=== PATIENT | female | born 1930 | race Caucasian/White ===

== ENCOUNTER 2016-10-29 19:22 | Inpatient (IN) | payer OTHER ==
[~2016-10-29] VITALS: Ht 162.6 cm; Wt 69.0 kg
[2016-10-29 19:34] VITALS: Ht 162.6 cm; Wt 69.0 kg
[2016-10-29] MEDS ORDERED: SOD CHLORIDE 0.9% 500 ML IV STA (20:16)
[2016-10-29 20:40] LABS: ADD SCAN DIFF NO
[2016-10-29 20:44] LABS: BASOPHILS % 0.4 % (0.0-2.0); EOSINOPHILS # 0.2 10^3/ul (0.0-0.5); EOSINOPHILS % 3.9 % (0.0-7.0); HEMATOCRIT 41.9 % (37.0-47.0); HEMOGLOBIN 13.8 g/dl (12.0-16.0); LYMPHOCYTES # 2.1 10^3/ul (0.8-2.9); LYMPHOCYTES % 41.4 % (15.0-51.0); MEAN CORPUSCULAR HEMOGLOBIN 30.9 pg (29.0-33.0); MEAN CORPUSCULAR HGB CONC 32.9 g/dl (32.0-37.0); MEAN CORPUSCULAR VOLUME 93.9 fl (82.0-101.0); MEAN PLATELET VOLUME 10.4 fl (7.4-10.4); MONOCYTE # 0.6 10^3/ul (0.3-0.9); MONOCYTES % 10.7 % (0.0-11.0); NEUTROPHIL # 2.2 10^3/ul (1.6-7.5); NEUTROPHILS % 43.4 % (39.0-77.0); PLATELET COUNT 180 10^3/UL (140-415); RED BLOOD COUNT 4.46 10^6/ul (4.20-5.40); RED CELL DISTRIBUTION WIDTH 13.2 % (11.5-14.5); WHITE BLOOD COUNT 5.2 10^3/ul (4.8-10.8)
--- NOTE | 2016-10-29 20:56 | RADRPT ---
PROCEDURE: CT Brain without contrast. CLINICAL INDICATION: Possible Stroke TECHNIQUE: A CT of the brain was performed on a [employer] 64-slice CT scanner utilizing axial imaging from the skull base through the vertex without IV contrast. Multiplanar reformatted images were made. Images were reviewed on a PACS workstation. The CTDIvol is 43.9 mGy and the DLP is 630. 2 mGycm. COMPARISON: None FINDINGS: There is no intracranial hemorrhage, mass effect, or midline shift. No extra-axial fluid collection is seen. There is cerebral volume loss with prominence of the cerebral sulci and lateral ventricles . Periventricular white matter hypodensities are nonspecific but likely reflect chronic microvascula r ischemic change. Sahni-white matter differentiation is preserved. The visualized paranasal sinuses and osseous structures are grossly unremarkable. IMPRESSION: 1. No evidence of acute intracranial pathology. No definite CT evidence for acute intracranial isch emia. If clinical suspicion is high, consider MRI for further evaluation. 2. Diffuse cerebral volume loss. 3. Periventricular white matter hypodensities are nonspecific but likely reflect chronic microvascu lar ischemic change. Physician Mary Date Time Electronically viewed and signed by Physician Mary on 10/29/2016 20:56 ML/
[2016-10-29 20:58] LABS: INR 1.85; PROTIME 21.5 Sec (12.2-14.2); PT RATIO 1.7
[2016-10-29 20:59] LABS: PARTIAL THROMBOPLASTIN TIME 32.6 Sec (25.0-35.0)
[2016-10-29 21:00] LABS: ANION GAP 18 (8-16); BLOOD UREA NITROGEN 15 mg/dl (7-20); CALCIUM 9.1 mg/dl (8.4-10.2); CARBON DIOXIDE 30 mmol/L (21-31); CHLORIDE 100 mmol/L (97-110); CREATININE 1.07 mg/dl (0.44-1.00); GLUCOSE 93 mg/dl (70-220); POTASSIUM 3.9 mmol/L (3.5-5.1); SODIUM 144 mmol/L (135-144)
[2016-10-29 21:29] LABS: TROPONIN-I < 0.012 ng/ml (0.00-0.12)
[2016-10-29] MEDS ORDERED: WARF2.5T PO ×2 (21:29→21:31)
[2016-10-29] MEDS ORDERED: LEVO88TA3 PO (21:32)
[2016-10-29] MEDS ORDERED: DONE5TAB46 PO (21:32)
[2016-10-29] MEDS ORDERED: MULTI PO (21:33)
[2016-10-29] MEDS ORDERED: CARV3.1260 PO (21:33)
[2016-10-29] MEDS ORDERED: CHOL200073 PO (21:34)
[2016-10-29] MEDS ORDERED: ONDANSETRON 4 MG INJ IV PRN (22:30)
--- NOTE | 2016-10-29 22:33 | RADRPT ---
PROCEDURE: XR Chest. CLINICAL INDICATION: Chest pain. Possible stroke. TECHNIQUE: Single frontal view of the chest. COMPARISON: None. FINDINGS: Cardiomegaly. Atherosclerotic calcifications in the thoracic aorta. Mild pulmonary vascular conges tion with slight bibasilar atelectasis versus airspace disease. No signs of pleural fluid or pneumot horax are seen. The osseous structures and soft tissues are unremarkable. IMPRESSION: Mild failure. RPTAT: [facility] Physician Samy Date Time Electronically viewed and signed by Physician Samy on 10/29/2016 22:32 RS/
[2016-10-29] MEDS ORDERED: ASPIRIN 600 MG SUPP PR ONE (23:00)
--- NOTE | 2016-10-29 23:03 | ERA ---
ER Documentation Chief Complaint Date/Time DATE: 10/29/16 TIME: 22:58 Chief Complaint R shoulder pain and weakness with facial droop per son (negative now) HPI This 86-year-old female is brought in by family for strokelike symptoms. The patient had difficulty swallowing left facial droop and left arm weakness that lasted about 40 seconds. It then immediately resolved this is why they brought her in. While she was in triage the patient had slurred speech which then resolved. She is currently on Coumadin. She also had pain in her left armpit and shoulder that resolved. No fever or chills. No current pain ROS All systems reviewed and are negative except as per history of present illness. Medications Home Meds Reported Medications Cholecalciferol (Vitamin D3) (VITAMIN D-3) 2,000 Unit Capsule, 2000 UNIT PO DAILY, CAP 10/29/16 Multivitamins* (Theragran*) 1 Tab Tab, 1 TAB PO DAILY, TAB 10/29/16 Carvedilol* (Carvedilol*) 3.125 Mg Tablet, 3.125 MG PO BID, #60 TAB 10/29/16 Donepezil* (Aricept*) 5 Mg Tablet, 5 MG PO DAILY, TAB 10/29/16 Levothyroxine Sodium* (Levothyroxine Sodium*) 88 Mcg Tablet, 88 MCG PO BEFORE BREAKFAST, #30 TAB 10/29/16 Warfarin Sodium* (Coumadin*) 2.5 Mg Tablet, 1.25 MG PO DAILY, TAB SUN.,TUES.,THURS.,FRI. 10/29/16 Warfarin Sodium* (Coumadin*) 2.5 Mg Tablet, 2.5 MG PO DAILY, TAB MON.,WEDN.,SAT 10/29/16 Allergies Allergies: Coded Allergies: acetaminophen (Unverified Allergy, Unknown, 10/29/16) digoxin (Unverified Allergy, Unknown, 10/29/16) erythromycin base (Unverified Allergy, Unknown, 10/29/16) fluticasone (Unverified Allergy, Unknown, 10/29/16) oxycodone (Unverified Allergy, Unknown, 10/29/16) PMhx/Soc History of Surgery: Yes (lumbarlectomy, bilateral knee replacements) Anesthesia Reaction: No Hx Neurological Disorder: No Hx Respiratory Disorders: No Hx Cardiac Disorders: Yes (hx of htn) Hx Psychiatric Problems: No Hx Miscellaneous Medical Probl: No Hx Alcohol Use: No Hx Substance Use: No Hx Tobacco Use: No Smoking Status: Never smoker Physical Exam Vitals Vital Signs Date Time Temp Pulse Resp B/P Pulse Ox O2 Delivery O2 Flow Rate FiO2 10/29/16 22:47 98.7 99 22 163/92 95 Room Air 10/29/16 20:53 98.7 81 18 182/91 95 Room Air 10/29/16 19:34 99.4 102 20 182/84 100 Physical Exam Const: [] Mild distress, appears uncomfortable Head: Atraumatic Eyes: Normal Conjunctiva, EOMI, PRL ENT: Normal External Ears, Nose and Mouth. Neck: Full range of motion..~ No meningismus. Resp: Clear to auscultation bilaterally Cardio: Regular rate and rhythm, no murmurs Abd: Soft, non tender, non distended. Normal bowel sounds Skin: No petechiae or rashes Back: No midline or flank tenderness Ext: No cyanosis, or edema Neur: Awake and alert and oriented 3, cranial nerves II through XII intact, no cerebellar deficits finger to nose. NIH equals 0 Psych: Normal Mood and Affect Result Diagram: 10/29/16202910/29/16 2030 Results 24 hrs Laboratory Tests Test 10/29/16 20:30 White Blood Count 5.210^3/ul Red Blood Count 4.4610^6/ul Hemoglobin 13.8g/dl Hematocrit 41.9% Mean Corpuscular Volume 93.9fl Mean Corpuscular Hemoglobin 30.9pg Mean Corpuscular Hemoglobin Concent 32.9g/dl Red Cell Distribution Width 13.2% Platelet Count 27876^3/UL Mean Platelet Volume 10.4fl Neutrophils % 43.4% Lymphocytes % 41.4% Monocytes % 10.7% Eosinophils % 3.9% Basophils % 0.4% Nucleated Red Blood Cells % 0.0/100WBC Neutrophils # 2.210^3/ul Lymphocytes # 2.110^3/ul Monocytes # 0.610^3/ul Eosinophils # 0.210^3/ul Basophils # 0.010^3/ul Nucleated Red Blood Cells # 0.010^3/ul Prothrombin Time 21.5Sec Prothrombin Time Ratio 1.7 INR International Normalized Ratio 1.85 Activated Partial Thromboplast Time 32.6Sec Sodium Level 144mmol/L Potassium Level 3.9mmol/L Chloride Level 100mmol/L Carbon Dioxide Level 30mmol/L Anion Gap 18 Blood Urea Nitrogen 15mg/dl Creatinine 1.07mg/dl Glucose Level 93mg/dl Hemoglobin A1c 5.8% Calcium Level 9.1mg/dl Troponin I < 0.012ng/ml Current Medications Medications (Trade) Dose Ordered Sig/Karen Route PRN Reason Start Time Stop Time Status Last Admin Dose Admin Sodium Chloride (NS) 500 ml @ 500 mls/hr Q1H STAT IV 10/29/16 20:16 10/29/16 21:15 DC 10/29/16 21:05 Ondansetron HCl (Zofran Inj) 4 mg ER BRIDGE PRN IV NAUSEA AND/OR VOMITING 10/29/16 22:30 10/30/16 22:29 Aspirin (Aspirin) 600 mg ONCE ONCE MN 10/29/16 23:00 10/29/16 23:01 Procedures/MDM Intermittent resolving symptoms of strokelike illness probably likely TIA. Patient is on Coumadin and had resolving symptoms and thus is not a TPA candidate currently. CTA was negative for acute process however patient had a repeat swallow study which she failed. Still has no other deficits. Was given rectal aspirin. Patient will be admitted to telemetry for very close monitoring and further neurological assessments. Spoke with Dr. Bueno who will be admitting to telemetry. CT head interpretation: I see no acute process. I see no hemorrhage, no mass- effect or midline shift no skull fracture. EKG interpretation: Atrial fibrillation, rate of 100, left axis deviation, no ST -T wave changes concerning for acute ischemia. shelter monitor interpretation: A. fib without other arrhythmia Departure Diagnosis: Primary Impression: TIA (transient ischemic attack) Additional Impression: A-fib Condition: Serious MARIE WILSON DO Oct 29, 2016 23:03
[2016-10-30] VITALS (7 sets, daily range): BP systolic 144–170; BP diastolic 70–94; PULSE 74–87; RESP 20–22; TEMP 98.6
[2016-10-30] MEDS ORDERED: NACL 0.9% 3 ML SYG IV SCH (05:30)
[2016-10-30] MEDS ORDERED: MAGNESIUM HYDROXIDE 30ML CUP PO PRN (05:30)
[2016-10-30] MEDS ORDERED: ONDANSETRON 4 MG INJ IV PRN (05:30)
[2016-10-30] MEDS ORDERED: ATORVASTATIN 20 MG TAB PO ONE (06:30)
[2016-10-30 07:03] LABS: ADD SCAN DIFF NO
[2016-10-30 07:04] LABS: BASOPHILS % 0.6 % (0.0-2.0); EOSINOPHILS # 0.2 10^3/ul (0.0-0.5); EOSINOPHILS % 3.4 % (0.0-7.0); HEMATOCRIT 41.1 % (37.0-47.0); HEMOGLOBIN 13.8 g/dl (12.0-16.0); LYMPHOCYTES # 1.9 10^3/ul (0.8-2.9); LYMPHOCYTES % 37.9 % (15.0-51.0); MEAN CORPUSCULAR HEMOGLOBIN 31.2 pg (29.0-33.0); MEAN CORPUSCULAR HGB CONC 33.6 g/dl (32.0-37.0); MEAN PLATELET VOLUME 10.6 fl (7.4-10.4); MONOCYTE # 0.5 10^3/ul (0.3-0.9); MONOCYTES % 8.9 % (0.0-11.0); NEUTROPHIL # 2.5 10^3/ul (1.6-7.5); PLATELET COUNT 165 10^3/UL (140-415); RED BLOOD COUNT 4.42 10^6/ul (4.20-5.40); RED CELL DISTRIBUTION WIDTH 13.1 % (11.5-14.5); WHITE BLOOD COUNT 5.1 10^3/ul (4.8-10.8)
[2016-10-30 07:25] LABS: ALANINE AMINOTRANSFERASE 20 IU/L (13-69); ALBUMIN 3.5 g/dl (3.3-4.9); ALKALINE PHOSPHATASE 49 IU/L (42-121); ANION GAP 17 (8-16); ASPARTATE AMINO TRANSFERASE 24 IU/L (15-46); BILIRUBIN,INDIRECT 0.6 mg/dl (0-1.1); BILIRUBIN,TOTAL 0.6 mg/dl (0.2-1.3); BLOOD UREA NITROGEN 12 mg/dl (7-20); CALCIUM 9.2 mg/dl (8.4-10.2); CARBON DIOXIDE 31 mmol/L (21-31); CHLORIDE 103 mmol/L (97-110); CHOL/HDL RATIO 3.9 RATIO; CHOLESTEROL 197 mg/dl (100-200); CREATININE 0.89 mg/dl (0.44-1.00); GLUCOSE 92 mg/dl (70-220); HDL CHOLESTEROL 50 mg/dl (33-92); MAGNESIUM 1.9 mg/dl (1.7-2.5); POTASSIUM 3.9 mmol/L (3.5-5.1); SODIUM 147 mmol/L (135-144); TOTAL PROTEIN 6.4 g/dl (6.1-8.1); TRIGLYCERIDES 78 mg/dl (0-149)
[2016-10-30 07:37] LABS: TROPONIN-I < 0.012 ng/ml (0.00-0.12)
--- NOTE | 2016-10-30 09:27 | RADRPT ---
PROCEDURE: US Carotids. CLINICAL INDICATION: TIA. TECHNIQUE: Sonographic images of the bilateral carotid arteries were obtained using torres scale and color Doppler imaging. The images were reviewed on a PACS workstation. COMPARISON: None available. FINDINGS: Right: CCA 34.8 cm/sec Prox ICA 30.3 cm/sec Mid ICA 31.8 cm/sec Dist ICA 37.7 cm/sec ECA 36.5 cm/sec ICA/CCA 1.1 Left: CCA 44.4 cm/sec Prox ICA 32.4 cm/sec Mid ICA 33.6 cm/sec Dist ICA 47.4 cm/sec ECA 28.8 cm/sec ICA/CCA 1.1 Antegrade flow is seen within the vertebral arteries bilaterally. No significant plaque is seen with in the carotid system bilaterally. There is no flow-limiting stenosis or thrombosis. IMPRESSION: 1. Unremarkable examination with no evidence for hemodynamically significant stenosis. 2. Antegrade flow seen within the vertebral arteries bilaterally. RPTAT: GG Validated velocity measurements with angiographic measurements, velocity criteria are extrapolated f rom diameter data as defined by the Society of Radiologists in Ultrasound Consensus Conference Radio logy 2003; 229;340-346. This study does indirectly reference the measurement of the distal ICA diame ter as the denominator for stenosis measurement. SRU Consensus Conference Criteria for the Diagnosis of Carotid Artery Stenosis Degree of Stenosis, % ICA PSV, cm/sec Plaque Estimate, % ICA/CCA PSV Ratio Normal <125 None <2.0 <50 <125 <50 <2.0 50 69 125-230 >50 2.0-4.0 >70 but less than near occlusion >230 >50 <4.0 Near occlusion High, low, or undetectable Visible Variable Total occlusion Undetectable Visible, no detectable lumen Not applicable .Jordan Mcdonough MD, MD Date Time Electronically viewed and signed by .Jordan Mcdonough MD, MD on 10/30/2016 09:26 .P/
[2016-10-30] MEDS: DEXTROSE 5%-0.45% NACL 1,000 ML IV SCH ×2 (10:47→18:24)
[2016-10-30] MEDS: LEVOTHYROXINE 88 MCG TAB PO SCH (11:11)
[2016-10-30] MEDS: CHOLECALCIFEROL 2,000 UNIT CAP PO SCH (11:11)
[2016-10-30] MEDS: DONEPEZIL 5 MG TAB PO SCH (11:12)
[2016-10-30] MEDS: MULTIVITAMINS THERAPEUTIC TAB PO SCH (11:13)
[2016-10-30] MEDS: ASPIRIN 81 MG TAB PO SCH (11:14)
--- NOTE | 2016-10-30 15:36 | RADRPT ---
PROCEDURE: MRI Brain without contrast. CLINICAL INDICATION: Weakness. TECHNIQUE: An MRI of the brain was performed utilizing the following sequences: Sagittal and axial T1 weighted, axial T2 weighted, axial diffusion weighted with ADC mapping, coronal GRE, and axial F LAIR. COMPARISON: Brain CT 10/29/2016. FINDINGS: No diffusion weighted abnormalities are seen to suggest the presence of acute ischemia or recent inf arct. No hypointense signal abnormalities are seen on the GRE images to suggest the presence of blo od degradation products. There is no evidence of intracranial hemorrhage, mass effect, or midline s hift. No extra-axial fluid collections are seen. The ventricles and sulci are mildly to moderately e nlarged indicative of volume loss. There are mild scattered foci of T2 FLAIR hyperintensity in the periventricular, deep, and subcortic al white matter, which are nonspecific in etiology but likely reflect chronic small vessel ischemic changes. No abnormal intracranial vascular flow void is noted. The visualized paranasal sinuses demonstrate m ild scattered mucosal thickening mainly in ethmoid air cells and maxillary sinuses. There is thinni ng of bilateral lens indicative of prior lens replacement. Partial opacification of left mastoid air cells are noted. IMPRESSION: 1. No acute intracranial hemorrhage, infarction or mass. 2. Mild chronic small vessel ischemic changes. 3. Mild to moderate generalized cerebral volume loss. 4. Partial opacification of left mastoid air cells. RPTAT: HH .Melyssa Willingham MD, MD Date Time Electronically viewed and signed by .Melyssa Willingham MD, MD on 10/30/2016 15:35 .N/
[2016-10-30] MEDS ORDERED: WARFARIN 2.5 MG TAB PO SCH ×2 (17:00)
--- NOTE | 2016-10-30 17:26 | RADRPT ---
Echocardiogram Report Patient Name: ROSE MARIE RODRIGUEZ Gender: Female Date: 1930 Study Date: 30-Oct-2016 Box Office Manager: Fabien Pringle [facility] Location: 3302 Ref. Physician: PARTH ESTES Quality: Technically Difficult Study Procedures: Transthoracic echocardiogram with complete 2D, M-Mode, and doppler examination. Indications: Transient Ischemic Attack. 2D/M Mode Doppler Measurement Value Normal Ranges Measurement Value Normal Ranges LVIDd 2D 3.9 3.5 - 5.6 cm AV Peak Josse 1.0 m/sec LVIDs 2D 2.5 2.1 - 4.1 cm AV Peak PG 4.2 mmHg LVPWd 2D 0.9 0.6 - 1.1 cm AI Peak PG 74.2 mmHg IVSd 2D 0.9 0.6 - 1.1 cm AI Peak Josse 4.3 m/sec AoR Diam 2D 2.9 2.0 - 3.7 cm AI PHT 721.7 msec EDV 2D 65.7 cm3 TR Peak Josse 2.4 m/sec ESV 2D 14.7 cm3 TR Peak PG 22.3 mmHg LA Dimen 2D 2.6 2.3 - 4.0 cm RVSP 25.0 mmHg Findings Left Ventricle: Normal left ventricular cavity size. Normal left ventricular wall thickness. Mild global left ventricular systolic dysfunction. Ejection fraction is visually estimated at 4550 %. Tissue Doppler/Mitral Doppler indices are consistent with restrictive physiology with markedly elevated left atrial pressure (Stage IIIIV diastolic dysfunction). Right Ventricle: Normal right ventricular size. Normal right ventricular systolic function. Left Atrium: The left atrium is normal in size. Right Atrium: The right atrium is normal in size. Mitral Valve: Mitral valve leaflets appear mildly thickened. Mild mitral annular calcification. Mild mitral valve regurgitation. Aortic Valve: No hemodynamically significant aortic stenosis by doppler. Aortic cusps appear mildly calcified. Mild aortic valve regurgitation. Tricuspid Valve: Normal appearance of the tricuspid valve. Estimated peak PA systolic pressure 25 mmHg. There is trace tricuspid regurgitation. Pulmonic Valve: Normal pulmonic valve appearance. There is mild pulmonic regurgitation. Pericardium: Normal pericardium with no significant pericardial effusion. Aorta: Normal aortic root. IVC: Normal size and normal respiratory collapse consistent with normal right atrial pressure. Conclusions 1.Normal left ventricular cavity size. Normal left ventricular wall thickness. Mild global left ventricular systolic dysfunction. Ejection fraction is visually estimated at 45-50 %. Tissue Doppler/Mitral Doppler indices are consistent with restrictive physiology with markedly elevated left atrial pressure (Stage III-IV diastolic dysfunction). 2.Mitral valve leaflets appear mildly thickened. Mild mitral annular calcification. Mild mitral valve regurgitation. 3.No hemodynamically significant aortic stenosis by doppler. Aortic cusps appear mildly calcified. Mild aortic valve regurgitation. 4.Normal appearance of the tricuspid valve. Estimated peak PA systolic pressure 25 mmHg. There is trace tricuspid regurgitation. 5.Normal pulmonic valve appearance. There is mild pulmonic regurgitation. Electronically Signed By: Cirilo Lopez 30-Oct-2016 17:26:13 -0700 Patient Name: ROSE MARIE RODRIGUEZ Study Date: 30-Oct-2016 [id number]
[2016-10-30] MEDS: WARFARIN 2.5 MG TAB PO SCH (18:12)
--- NOTE | 2016-10-30 21:35 | CONS ---
Date/Time of Note Date/Time of Note DATE: 10/30/16 TIME: 21:26 Assessment/Plan Assessment/Plan Chief Complaint/Hosp Course PHYSICAL EXAMINATION: GENERAL: Not in acute distress, lying in bed. HEENT: Normocephalic, atraumatic head. NECK: No carotid bruits. No thyromegaly. LUNGS: Clear to auscultation bilaterally. CARDIAC: Normal cardiac rhythm and sounds. ABDOMEN: Soft. EXTREMITIES: No cyanosis, clubbing, or edema. NEUROLOGIC: She is awake, oriented x2, looks bilaterally, fluent speechl. Cranial nerve examination shows intact visual xiao bilaterally to threat. Pupils round, reactive to light from 3 to 2 mm bilaterally. Extraocular movements intact without nystagmus. Symmetrical face. Preserved facial strength and sensation. Corneals OK. Motor strength examination is preserved in all extremities. Normal bulk, tone. Moves all extremities symmetrically to pain. Deep tendon reflexes 1+ upper extremities, absent in lower extremities. Downgoing toes bilaterally. No tremor. Normal coordination. gait was not assessed IMPRESSION: TIA.. A.Fib, subtherapeutic INR, keep in the 2-3 range. OK elevated BP in the first few days (up to 220/120), obtain tight control gradually. Lipitor. OK to cont ASA Problems: Consultation Date/Type/Reason Admit Date/Time Oct 29, 2016 at 22:32 Type of Consultation: neurology Hx of Present Illness 86 y/o lady with a.fib on anticoagulation, sutherapeutic INR, came with transient less than 1 min left facial droop, slurry speech.Similar short lasting episode per pt's daughter earlier today. Past Medical History afib Medical History: congestive heart failure Family History Significant Family History: hypertension Social History Smoking Status: Former smoker Exam/Review of Systems Vital Signs Vitals Vital Signs Date Time Temp Pulse Resp B/P Pulse Ox O2 Delivery O2 Flow Rate FiO2 10/30/16 20:18 86 10/30/16 19:58 97.8 20 170/94 94 10/30/16 12:24 Room Air Intake and Output 10/29/16 10/29/16 10/30/16 15:00 23:00 07:00 Intake Total 500 ml Balance 500 ml Results Result Diagram: 10/30/16 0655 10/30/16 0655 Results 24 hrs Laboratory Tests Test 10/30/16 06:55 10/30/16 14:20 White Blood Count 5.1 Red Blood Count 4.42 Hemoglobin 13.8 Hematocrit 41.1 Mean Corpuscular Volume 93.0 Mean Corpuscular Hemoglobin 31.2 Mean Corpuscular Hemoglobin Concent 33.6 Red Cell Distribution Width 13.1 Platelet Count 165 Mean Platelet Volume 10.6 H Neutrophils % 49.0 Lymphocytes % 37.9 Monocytes % 8.9 Eosinophils % 3.4 Basophils % 0.6 Nucleated Red Blood Cells % 0.0 Neutrophils # 2.5 Lymphocytes # 1.9 Monocytes # 0.5 Eosinophils # 0.2 Basophils # 0.0 Nucleated Red Blood Cells # 0.0 Sodium Level 147 H Potassium Level 3.9 Chloride Level 103 Carbon Dioxide Level 31 Anion Gap 17 H Blood Urea Nitrogen 12 Creatinine 0.89 Glucose Level 92 Hemoglobin A1c 5.8 Calcium Level 9.2 Magnesium Level 1.9 Total Bilirubin 0.6 Direct Bilirubin 0.00 Indirect Bilirubin 0.6 Aspartate Amino Transf (AST/SGOT) 24 Alanine Aminotransferase (ALT/SGPT) 20 Alkaline Phosphatase 49 Troponin I < 0.012 < 0.012 Total Protein 6.4 Albumin 3.5 Globulin 2.90 Albumin/Globulin Ratio 1.20 Triglycerides Level 78 Cholesterol Level 197 LDL Cholesterol, Calculated 131 HDL Cholesterol 50 Cholesterol/HDL Ratio 3.9 Thyroid Stimulating Hormone (TSH) 2.630 Medications Medications Current Medications Dextrose/Sodium Chloride (D5-1/2ns) 1,000 ml @ 75 mls/hr [id number] IV Last administered on 10/30/16 10:47; Admin Dose 75 MLS/HR; Start 10/30/16 at 05:06 Aspirin (Aspirin) 81 mg DAILY PO Last administered on 10/30/16 11:14; Admin Dose 81 MG; Start 10/30/16 at 09:00 Magnesium Hydroxide (Milk Of Mag) 30 ml DAILY PRN PO CONSTIPATION; Start at 05:30 Cholecalciferol (Vitamin D) 2,000 unit DAILY PO Last administered on 10/30/16 11:11; Admin Dose 2,000 UNIT; Start 10/30/16 at 09:00 Donepezil HCl (Aricept) 5 mg DAILY PO Last administered on 10/30/16 11:12; Admin Dose 5 MG; Start 10/30/16 at 09:00 Multivitamins Therapeutic (Theragran) 1 tab DAILY PO Last administered on 11:13; Admin Dose 1 TAB; Start 10/30/16 at 09:00 Carvedilol (Coreg) 3.125 mg BID PO Last administered on 10/30/16 20:54; Admin Dose 3.125 MG; Start 10/30/16 at 13:30 Warfarin Sodium (Coumadin) 2.5 mg MoWeSa@17 PO ; Start 10/31/16 at 17:00 Warfarin Sodium (Coumadin) 1.25 mg SuTuThFr@17 PO Last administered on 18:12; Admin Dose 1.25 MG; Start 10/30/16 at 17:00 FABIO PEPE MD Oct 30, 2016 21:35
[2016-10-31] VITALS (12 sets, daily range): BP systolic 114–152; BP diastolic 60–93; PULSE 80–106; RESP 18–24
[2016-10-31] MEDS: LEVOTHYROXINE 88 MCG TAB PO SCH (05:46)
[2016-10-31 06:22] LABS: ADD SCAN DIFF NO
[2016-10-31 06:29] LABS: BASOPHILS % 0.6 % (0.0-2.0); EOSINOPHILS # 0.2 10^3/ul (0.0-0.5); HEMATOCRIT 41.8 % (37.0-47.0); HEMOGLOBIN 13.8 g/dl (12.0-16.0); LYMPHOCYTES # 1.5 10^3/ul (0.8-2.9); LYMPHOCYTES % 32.1 % (15.0-51.0); MEAN CORPUSCULAR HEMOGLOBIN 30.9 pg (29.0-33.0); MEAN CORPUSCULAR VOLUME 93.5 fl (82.0-101.0); MEAN PLATELET VOLUME 10.5 fl (7.4-10.4); MONOCYTE # 0.4 10^3/ul (0.3-0.9); MONOCYTES % 8.5 % (0.0-11.0); NEUTROPHIL # 2.6 10^3/ul (1.6-7.5); NEUTROPHILS % 54.6 % (39.0-77.0); PLATELET COUNT 174 10^3/UL (140-415); RED BLOOD COUNT 4.47 10^6/ul (4.20-5.40); RED CELL DISTRIBUTION WIDTH 13.2 % (11.5-14.5); WHITE BLOOD COUNT 4.8 10^3/ul (4.8-10.8)
[2016-10-31 06:46] LABS: INR 1.62; PROTIME 19.4 Sec (12.2-14.2); PT RATIO 1.5
[2016-10-31 06:55] LABS: PHOSPHORUS 3.8 mg/dl (2.5-4.9); POTASSIUM 3.8 mmol/L (3.5-5.1)
[2016-10-31] MEDS: DEXTROSE 5%-0.45% NACL 1,000 ML IV SCH ×2 (07:46→19:55)
--- NOTE | 2016-10-31 08:25 | HP ---
DATE OF ADMISSION: 10/29/2016 CHIEF COMPLAINT: Slurred speech and left facial droop and left arm weakness. HISTORY OF PRESENT ILLNESS: The patient is an 86-year-old female with a history of hypertension, hypothyroidism, dementia, and atrial fibrillation on Coumadin, who was brought to the ER with family with the above-stated chief complaint. The patient was talking on the phone when the above-stated symptoms started and lasted less than 1 minute. Along with her left arm weakness, she also complained of having had left shoulder pain. No chest pain, no shortness of breath, no seizure-like activity. The history was provided by the family. Patient looks somewhat uncomfortable. Otherwise currently her symptoms seem to have resolved. When she presented to the ER, blood pressure was 163/92, heart rate 99, respiratory rate 20, temperature 98.7, oxygen saturation 95 percent on room air. Creatinine is 1.07. Otherwise CBC and BMP are within normal limits. First troponin is negative. Brain CT shows diffuse cerebral volume loss, nonspecific but likely chronic microvascular ischemic change, otherwise no evidence of acute intracranial pathology. The patient was given 600 mg of aspirin per rectum while she was in the ER. REVIEW OF SYSTEMS: Negative except as noted in HPI. PAST MEDICAL HISTORY: As per HPI. PAST SURGICAL HISTORY: Bilateral knee replacements and lumbar surgery. SOCIAL HISTORY: No history of tobacco, alcohol, or illicit drug use. ALLERGIES: OXYCODONE. FLUTICASONE. ERYTHROMYCIN. DIGOXIN. ACETAMINOPHEN. HOME MEDICATIONS: 1. Coumadin. 2. Donepezil. 3. Coreg. 4. Synthroid. 5. Vitamin D. 6. Multivitamin. PHYSICAL EXAMINATION: VITALS: Blood pressure 156/97, heart rate 98, respiratory rate 16, temperature 98.3, oxygen saturation 96 percent on room air. GENERAL: Patient lying in bed, sleepy but arousable, in no acute distress. HEENT: No deformity. Pupils are reactive to light. CARDIOVASCULAR: Regular rate and rhythm. LUNGS: Clear anteriorly. ABDOMEN: Soft. No grimace noted on palpation. There are positive bowel sounds. EXTREMITIES: No edema. NEUROLOGIC: No focal deficits. LABORATORY: Creatinine 1.07. Otherwise CBC and BMP within normal limits. First troponin negative. IMAGING: A brain CT with results as mentioned in the HPI. A chest x-ray shows mild pulmonary vascular congestion with slight bibasilar atelectasis versus air space disease. IMPRESSION: 1. Transient ischemic attack. 2. History of atrial fibrillation. 3. History of hypothyroidism. 4. History of dementia. 5. Mild acute kidney injury, presumed acute. PLAN: Will do a full stroke workup. Will order an MRI of the brain, bilateral carotid doppler ultrasound, and a 2-D echo. Will trend troponin. She will be placed on aspirin, statin. Will check A1c and fasting lipids. Will allow permissive hypertension for about 24 hours and will not treat her blood pressure unless it is greater than 220/120. Blood glucose should be less than 180 and will give Tylenol for any sign of even low- grade fever. Will place a neurology consult. She will have physical therapy as well as speech/swallow evaluations. She takes Coumadin at home for her atrial fibrillation, which will be continued in-house. Of note, her INR upon presentation was 1.85. Further workup hospital course. Dictated By: Maxim Downey MD /cecy/michael /Document#: [id number]
[2016-10-31] MEDS: ASPIRIN 81 MG TAB PO SCH (09:02)
[2016-10-31] MEDS: DONEPEZIL 5 MG TAB PO SCH (09:02)
[2016-10-31] MEDS: MULTIVITAMINS THERAPEUTIC TAB PO SCH (09:02)
[2016-10-31] MEDS: CHOLECALCIFEROL 2,000 UNIT CAP PO SCH (09:03)
--- NOTE | 2016-10-31 11:58 | PN ---
Date/Time of Note Date/Time of Note DATE: 10/31/16 TIME: 11:49 Assessment/Plan VTE Prophylaxis VTE Prophylaxis Intervention: other (Coumadin) Lines/Catheters IV [facility]ter [facility]from [facility] [place] Assessment/Plan Chief Complaint/Hosp Course 1. Transient ischemic attack vs stroke. MRI without any acute stroke. -Neurology evaluation appreciated. We will continue patient on aspirin, statin and anticoagulation 2. Atrial fibrillation with subtherapeutic INR. Recommended INR 2-3. -We will give additional Coumadin 2.5 today. -Continue beta-blockers for rate control. -Cardiology consult for further dosing of Coumadin. 3. 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 Echocardiogram with EF 45-50%. -Continue aspirin and beta-blockers. Cardiology for further management. 4. Hypothyroidism -On Synthroid 4. Dementia. Stable. -On Aricept. 5. Hypernatremia, likely dehydration. Improving. Will monitor. PLAN: We will have cardiology evaluate patient today. Of note, patient INR is subtherapeutic and this was discussed with patient's daughter and they opted for outpatient Coumadin clinic for further monitoring and dose adjustment upon discharge. Case discussed with . Problems: Subjective 24 Hr Interval Summary Free Text/Dictation Patient has been ambulating in the room without any difficulties. Denies any chest pain, loss of consciousness, numbness, dizziness or other constitutional symptoms. Exam/Review of Systems Vital Signs Vitals Vital Signs Date Time Temp Pulse Resp B/P Pulse Ox O2 Delivery O2 Flow Rate FiO2 10/31/16 11:20 98.6 97 18 120/74 95 10/30/16 12:24 Room Air Intake and Output 10/30/16 10/30/16 10/31/16 15:00 23:00 07:00 Intake Total 400 ml Balance 400 ml Exam General: Well developed,adequately built, not in any acute distress . HEENT: Normocephalic, Atraumatic, No laceration or hematoma; Eyes: PEERL, Conjunctiva clear, Anicteric sclera Neck: Supple without any lymphadenopathy, nontender, no JVD, no carotid bruits, trachea midline, no thyromegaly Cardiac: S1, S2 auscultated, regular rhythm and rate, no mumurs or gallop Pulmonary: Normal respiratory effort. Chest clear to auscultation bilaterally, no adventitious breath sounds GI: Abdomen normal to inspection. Soft, non tender, non- distended, no masses, no rebound tenderness or guarding. Bowel sounds active on all four quadrants Genitourinary: Deferred Extremities: No cyanosis, clubbing, or edema. Pulses [2+] bilaterally. Full ROM on all four extremities. No focal weakness appreciated. Neurologic: Mild facial droop on left with mild slurred speech. Alert to person , place, time, and situation. Affect appropriate, intact sensation. Skin: Clean,dry, and intact. No ecchymosis, no rashes, or lesions Results Result Diagram: 10/31/16 0550 10/31/16 0550 Results 24 hrs Laboratory Tests Test 10/30/16 14:20 10/31/16 05:50 Troponin I < 0.012 White Blood Count 4.8 Red Blood Count 4.47 Hemoglobin 13.8 Hematocrit 41.8 Mean Corpuscular Volume 93.5 Mean Corpuscular Hemoglobin 30.9 Mean Corpuscular Hemoglobin Concent 33.0 Red Cell Distribution Width 13.2 Platelet Count 174 Mean Platelet Volume 10.5 H Neutrophils % 54.6 Lymphocytes % 32.1 Monocytes % 8.5 Eosinophils % 4.0 Basophils % 0.6 Nucleated Red Blood Cells % 0.0 Neutrophils # 2.6 Lymphocytes # 1.5 Monocytes # 0.4 Eosinophils # 0.2 Basophils # 0.0 Nucleated Red Blood Cells # 0.0 Prothrombin Time 19.4 H Prothrombin Time Ratio 1.5 INR International Normalized Ratio 1.62 Sodium Level 146 H Potassium Level 3.8 Chloride Level 102 Carbon Dioxide Level 32 H Anion Gap 16 Blood Urea Nitrogen 17 Creatinine 1.00 Glucose Level 99 Calcium Level 9.0 Phosphorus Level 3.8 Magnesium Level 2.0 Medications Medications Current Medications Dextrose/Sodium Chloride (D5-1/2ns) 1,000 ml @ 75 mls/hr [id number] IV Last administered on 10/30/16 10:47; Admin Dose 75 MLS/HR; Start 10/30/16 at 05:06 Aspirin (Aspirin) 81 mg DAILY PO Last administered on 10/31/16 09:02; Admin Dose 81 MG; Start 10/30/16 at 09:00 Magnesium Hydroxide (Milk Of Mag) 30 ml DAILY PRN PO CONSTIPATION; Start at 05:30 Cholecalciferol (Vitamin D) 2,000 unit DAILY PO Last administered on 10/31/16 09:03; Admin Dose 2,000 UNIT; Start 10/30/16 at 09:00 Donepezil HCl (Aricept) 5 mg DAILY PO Last administered on 10/31/16 09:02; Admin Dose 5 MG; Start 10/30/16 at 09:00 Multivitamins Therapeutic (Theragran) 1 tab DAILY PO Last administered on 09:02; Admin Dose 1 TAB; Start 10/30/16 at 09:00 Carvedilol (Coreg) 3.125 mg BID PO Last administered on 10/31/16 09:02; Admin Dose 3.125 MG; Start 10/30/16 at 13:30 Warfarin Sodium (Coumadin) 2.5 mg MoWeSa@17 PO ; Start 10/31/16 at 17:00 Warfarin Sodium (Coumadin) 1.25 mg SuTuThFr@17 PO Last administered on 18:12; Admin Dose 1.25 MG; Start 10/30/16 at 17:00 Atorvastatin Calcium (Lipitor) 40 mg HS PO ; Start 10/31/16 at 21:00 FREDY RAY NP Oct 31, 2016 11:58
[2016-10-31] MEDS ORDERED: WARFARIN 2.5 MG TAB PO ONE (12:00)
[2016-10-31] MEDS ORDERED: FUROSEMIDE 20 MG INJ IV ONE (14:00)
[2016-10-31] MEDS ORDERED: WARFARIN 2.5 MG TAB PO SCH (17:00)
--- NOTE | 2016-10-31 20:21 | CONS ---
Date/Time of Note Date/Time of Note DATE: 10/31/16 TIME: 20:17 Consult Date/Type/Reason Admit Date/Time Oct 29, 2016 at 22:32 Initial Consult Date Type of Consultation: neurology Subjective Feels better, ambulates, still minimal slurred speech, heaviness of tongue per family Objective Vital Signs Date Time Temp Pulse Resp B/P Pulse Ox O2 Delivery O2 Flow Rate FiO2 10/31/16 20:15 80 10/31/16 15:30 98.6 18 114/60 94 10/30/16 12:24 Room Air Intake and Output 10/30/16 10/30/16 10/31/16 15:00 23:00 07:00 Intake Total 400 ml Balance 400 ml Results/Medications Result Diagram: 10/31/16 0550 10/31/16 0550 Results 24 hrs Laboratory Tests Test 10/31/16 05:50 White Blood Count 4.8 Red Blood Count 4.47 Hemoglobin 13.8 Hematocrit 41.8 Mean Corpuscular Volume 93.5 Mean Corpuscular Hemoglobin 30.9 Mean Corpuscular Hemoglobin Concent 33.0 Red Cell Distribution Width 13.2 Platelet Count 174 Mean Platelet Volume 10.5 H Neutrophils % 54.6 Lymphocytes % 32.1 Monocytes % 8.5 Eosinophils % 4.0 Basophils % 0.6 Nucleated Red Blood Cells % 0.0 Neutrophils # 2.6 Lymphocytes # 1.5 Monocytes # 0.4 Eosinophils # 0.2 Basophils # 0.0 Nucleated Red Blood Cells # 0.0 Prothrombin Time 19.4 H Prothrombin Time Ratio 1.5 INR International Normalized Ratio 1.62 Sodium Level 146 H Potassium Level 3.8 Chloride Level 102 Carbon Dioxide Level 32 H Anion Gap 16 Blood Urea Nitrogen 17 Creatinine 1.00 Glucose Level 99 Calcium Level 9.0 Phosphorus Level 3.8 Magnesium Level 2.0 Medications Current Medications Dextrose/Sodium Chloride (D5-1/2ns) 1,000 ml @ 75 mls/hr [id number] IV Last administered on 10/30/16 10:47; Admin Dose 75 MLS/HR; Start 10/30/16 at 05:06 Aspirin (Aspirin) 81 mg DAILY PO Last administered on 10/31/16 09:02; Admin Dose 81 MG; Start 10/30/16 at 09:00 Magnesium Hydroxide (Milk Of Mag) 30 ml DAILY PRN PO CONSTIPATION; Start at 05:30 Cholecalciferol (Vitamin D) 2,000 unit DAILY PO Last administered on 10/31/16 09:03; Admin Dose 2,000 UNIT; Start 10/30/16 at 09:00 Donepezil HCl (Aricept) 5 mg DAILY PO Last administered on 10/31/16 09:02; Admin Dose 5 MG; Start 10/30/16 at 09:00 Multivitamins Therapeutic (Theragran) 1 tab DAILY PO Last administered on 09:02; Admin Dose 1 TAB; Start 10/30/16 at 09:00 Warfarin Sodium (Coumadin) 2.5 mg MoWeSa@17 PO Last administered on 10/31/16 17:49; Admin Dose 2.5 MG; Start 10/31/16 at 17:00 Warfarin Sodium (Coumadin) 1.25 mg SuTuThFr@17 PO Last administered on 18:12; Admin Dose 1.25 MG; Start 10/30/16 at 17:00 Atorvastatin Calcium (Lipitor) 40 mg HS PO ; Start 10/31/16 at 21:00 Carvedilol (Coreg) 6.25 mg BID PO ; Start 10/31/16 at 21:00 Enoxaparin Sodium (Lovenox) 40 mg BID SC ; Start 10/31/16 at 21:00 Assessment/Plan Chief Complaint/Hosp Course PHYSICAL EXAMINATION: GENERAL: Not in acute distress, lying in bed. HEENT: Normocephalic, atraumatic head. NECK: No carotid bruits. No thyromegaly. LUNGS: Clear to auscultation bilaterally. CARDIAC: Normal cardiac rhythm and sounds. ABDOMEN: Soft. EXTREMITIES: No cyanosis, clubbing, or edema. NEUROLOGIC: She is awake, oriented x2, looks bilaterally, fluent speech. Cranial nerve examination shows intact visual xiao bilaterally to threat. Pupils round, reactive to light from 3 to 2 mm bilaterally. Extraocular movements intact without nystagmus. Symmetrical face. Preserved facial strength and sensation. Corneals OK. Motor strength examination is preserved in all extremities. Normal bulk, tone. Moves all extremities symmetrically to pain. Deep tendon reflexes 1+ upper extremities, absent in lower extremities. Downgoing toes bilaterally. No tremor. Normal coordination. Normal cautious gait IMPRESSION: Small CVA, symptoms lasted >24 h. A.Flutter, subtherapeutic INR, keep in the 2-3 range. Keep normotensive, euglycemic. Lipitor. OK to cont ASA D/w pt's relative, Marcelo FAULKNER OK to d/c Problems: FABIO PEPE MD Oct 31, 2016 20:21
[2016-10-31] MEDS: ATORVASTATIN 40 MG TAB PO SCH (20:44)
[2016-10-31] MEDS: ENOXAPARIN 40 MG/0.4 ML SYG SC SCH (20:52)
[2016-11-01] VITALS (11 sets, daily range): BP systolic 108–139; BP diastolic 66–79; PULSE 77–106; RESP 16–19
[2016-11-01 07:16] LABS: INR 2.04; PROTIME 23.2 Sec (12.2-14.2); PT RATIO 1.8
[2016-11-01] MEDS: LEVOTHYROXINE 88 MCG TAB PO SCH (07:31)
[2016-11-01] MEDS: ASPIRIN 81 MG TAB PO SCH (09:05)
[2016-11-01] MEDS: MULTIVITAMINS THERAPEUTIC TAB PO SCH (09:05)
[2016-11-01] MEDS: CHOLECALCIFEROL 2,000 UNIT CAP PO SCH (09:06)
[2016-11-01] MEDS: DONEPEZIL 5 MG TAB PO SCH (09:06)
[2016-11-01] MEDS: ENOXAPARIN 40 MG/0.4 ML SYG SC SCH (09:11)
[2016-11-01] MEDS: DEXTROSE 5%-0.45% NACL 1,000 ML IV SCH ×2 (10:26→23:46)
--- NOTE | 2016-11-01 10:48 | PN ---
Date/Time of Note Date/Time of Note DATE: 11/01/16 TIME: 10:41 Assessment/Plan VTE Prophylaxis VTE Prophylaxis Intervention: LMWH, other (COUMADIN) Lines/Catheters IV Catheter Type (from Nrs): Peripheral IV Assessment/Plan Chief Complaint/Hosp Course 1. Small CVA. -Neurology evaluation appreciated. -We will continue patient on aspirin, statin and anticoagulation -Acute rehab eval. 2. Atrial fibrillation with subtherapeutic INR. Recommended INR 2-3. -Continue Lovenox bridging until INR gets therapeutic. -Continue beta-blockers for rate control. -Cardiology eval appreciated. -Continue home Coumadin dose 3. 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 Echocardiogram with EF 45-50%. -Continue aspirin and beta-blockers. Cardiology for further management. 4. Hypothyroidism -On Synthroid 4. Dementia. Stable. -On Aricept. 5. Hypernatremia, likely dehydration. Improving. Will monitor. PLAN: Patient wants to go home and neurology has cleared for DC. However, patient still with subtherapeutic INR and needs Lovenox. If patient does not want to stay hospital ,we will arrange case management for home health for few more Lovenox doses and INR monitoring once cardiology clear for DC. We will follow cards recommendation on discharge planning. Case discussed with . Problems: Subjective 24 Hr Interval Summary Free Text/Dictation Patient with mild slurred speech.no focal deficit. Wants to go home. Exam/Review of Systems Vital Signs Vitals Vital Signs Date Time Temp Pulse Resp B/P Pulse Ox O2 Delivery O2 Flow Rate FiO2 11/01/16 08:06 95 11/01/16 07:30 98.0 16 108/69 97 10/30/16 12:24 Room Air Intake and Output 10/31/16 10/31/16 11/01/16 15:00 23:00 07:00 Intake Total 700 ml 250 ml Balance 700 ml 250 ml Exam General: Well developed,adequately built, not in any acute distress . HEENT: Normocephalic, Atraumatic, No laceration or hematoma; Eyes: PEERL, Conjunctiva clear, Anicteric sclera Neck: Supple without any lymphadenopathy, nontender, no JVD, no carotid bruits, trachea midline, no thyromegaly Cardiac: S1, S2 auscultated, regular rhythm and rate, no mumurs or gallop Pulmonary: Normal respiratory effort. Chest clear to auscultation bilaterally, no adventitious breath sounds GI: Abdomen normal to inspection. Soft, non tender, non- distended, no masses, no rebound tenderness or guarding. Bowel sounds active on all four quadrants Genitourinary: Deferred Extremities: No cyanosis, clubbing, or edema. Pulses [2+] bilaterally. Full ROM on all four extremities. No focal weakness appreciated. Neurologic: Mild facial droop on left with mild slurred speech. Alert to person , place, time, and situation. Affect appropriate, intact sensation. Skin: Clean,dry, and intact. No ecchymosis, no rashes, or lesions Results Result Diagram: 10/31/16 0550 10/31/16 0550 Results 24 hrs Laboratory Tests Test 11/01/16 06:24 Prothrombin Time 23.2 H Prothrombin Time Ratio 1.8 INR International Normalized Ratio 2.04 Medications Medications Current Medications Dextrose/Sodium Chloride (D5-1/2ns) 1,000 ml @ 75 mls/hr [id number] IV Last administered on 10/30/16 10:47; Admin Dose 75 MLS/HR; Start 10/30/16 at 05:06 Aspirin (Aspirin) 81 mg DAILY PO Last administered on 11/01/16 09:05; Admin Dose 81 MG; Start 10/30/16 at 09:00 Magnesium Hydroxide (Milk Of Mag) 30 ml DAILY PRN PO CONSTIPATION; Start at 05:30 Cholecalciferol (Vitamin D) 2,000 unit DAILY PO Last administered on 11/01/16 09:06; Admin Dose 2,000 UNIT; Start 10/30/16 at 09:00 Donepezil HCl (Aricept) 5 mg DAILY PO Last administered on 11/01/16 09:06; Admin Dose 5 MG; Start 10/30/16 at 09:00 Multivitamins Therapeutic (Theragran) 1 tab DAILY PO Last administered on 09:05; Admin Dose 1 TAB; Start 10/30/16 at 09:00 Warfarin Sodium (Coumadin) 2.5 mg MoWeSa@17 PO Last administered on 10/31/16 17:49; Admin Dose 2.5 MG; Start 10/31/16 at 17:00 Warfarin Sodium (Coumadin) 1.25 mg SuTuThFr@17 PO Last administered on 18:12; Admin Dose 1.25 MG; Start 10/30/16 at 17:00 Atorvastatin Calcium (Lipitor) 40 mg HS PO Last administered on 10/31/16 20:44 ; Admin Dose 40 MG; Start 10/31/16 at 21:00 Carvedilol (Coreg) 6.25 mg BID PO Last administered on 11/01/16 09:07; Admin Dose 6.25 MG; Start 10/31/16 at 21:00 Enoxaparin Sodium (Lovenox) 40 mg BID SC Last administered on 11/01/16 09:11; Admin Dose 40 MG; Start 10/31/16 at 21:00 FREDY RAY NP Nov 01, 2016 10:48
--- NOTE | 2016-11-01 11:33 | QN ---
Documentation Comment Rapid response note ASSIGNMENT EDITOR was called at 1110 to room 504. Upon examination, patient seem to have increased facial asymmetry to left with drooling and slurred speech. Vital signs pulse rate 97, blood pressure 166/67, respiratory rate 18. Patient alert oriented 4. No motor weakness. Full range of motion on all 4 extremities. Cord stroke initiated. Stat CT brain ordered. Nursing staff informed of keeping permissive blood pressure over the next 24 hours and to hold all antihypertensives for now. Repeat examination in 2 minutes with normal speech clarity. Symptoms resolved. Spoke to family in room and questions answered to satisfaction. Awaiting for telemetry neurologist recommendation for further management. Approximately 60 minutes of critical care time spent for ASSIGNMENT EDITOR. Spoke to telemetry neurologist at 1 PM and per MD, as patient's symptoms have subsided, and patient also under the current neurology service, there is no indication for a tele neurologist to see patient as patient's admitting diagnosis was TIA/ stroke. Patient needs ongoing neurology evaluation and we will follow-up with our neurology recommendation. CT brain reviewed and no evidence of acute stroke. We will defer to neurology for consideration for further diagnostic studies. Case discussed with . FREDY RAY NP Nov 01, 2016 11:32
--- NOTE | 2016-11-01 11:55 | RADRPT ---
PROCEDURE: Noncontrast CT Head. CLINICAL INDICATION: Code stroke. Acute neurologic deficit. TECHNIQUE: Noncontrast CT of the head was obtained. The administered radiation dose was CTDI vol = 45.01 mGy, DLP = 630.2 mGy-cm. One or more of the following dose reduction techniques were used: Aut omated exposure control, Adjustment of the mA and/or kV according to patient size, or Use of iterati ve reconstruction technique. COMPARISON: Noncontrast CT of the head from October 29, 2016. Noncontrast MRI of the brain from October. FINDINGS: There is mild to moderate generalized cerebral volume loss. There is mild cerebellar volume loss. T here is mild periventricular hypoattenuation suggesting chronic microvascular ischemic changes. The re are mild to moderate vascular calcifications within the intracranial carotid arteries. There is s ubcentimeter coarse calcification within the superior aspect of the left petrous apex which is indet erminate but may represent a small calcified meningioma. There is a partially empty sella turcica. There is no loss of torres-white differentiation to suggest acute territorial infarction. There is no acute intracranial hemorrhage or extra-axial fluid collection. There is no mass effect. No midline shift is identified. The orbits are within normal limits. The paranasal sinuses are well aerated. No destructive osseous lesion is identified. There are moderate left mastoid air cell effusions. IMPRESSION: No significant change. 1. No loss of torres-white differentiation to suggest acute territorial infarction. Consider CTA of t he head/neck or noncontrast MRI of the brain as clinically warranted. 2. No acute intracranial hemorrhage. 3. Mild to moderate cerebral and mild cerebellar volume loss. 4. Mild chronic microvascular ischemic changes. 5. Subcentimeter coarse calcification within the superior aspect of the left petrous apex which is i ndeterminate but may represent a small calcified meningioma or dural calcification. 6. Partially empty sella turcica. Further findings as detailed above. These findings were discussed with nurse Short at 11:54 a.m. on November 01, 2016. RPTAT: PP .Brendan Gee MD, MD Date Time Electronically viewed and signed by .Brendan Gee MD, on 11/01/2016 11:54 .F/
--- NOTE | 2016-11-01 13:10 | CONS ---
Date/Time of Note Date/Time of Note DATE: 11/01/16 TIME: 13:01 Assessment/Plan Assessment/Plan Chief Complaint/Hosp Course IMP: 1.AF-rate controlled 2.TIA/CVA-ongoing slurred speech with [employer] today 3.dyslipidemia 4.HTN 5.HYpothyroid 6. Hyprernatremia 7. Subtherapeutic INR- now therapeutic today Recc: -Tele -serial ecg's -Continue asa/statin -Ongoing neuro eval Problems: Consultation Date/Type/Reason Admit Date/Time Oct 29, 2016 at 22:32 Initial Consult Date 11/01/16 Type of Consultation: cardiology Reason for Consultation AF Referring Provider: NATALIYA VELA Exam/Review of Systems Vital Signs Vitals Vital Signs Date Time Temp Pulse Resp B/P Pulse Ox O2 Delivery O2 Flow Rate FiO2 11/01/16 12:25 90 11/01/16 07:30 98.0 16 108/69 97 10/30/16 12:24 Room Air Intake and Output 10/31/16 10/31/16 11/01/16 15:00 23:00 07:00 Intake Total 700 ml 250 ml Balance 700 ml 250 ml Exam Review of Systems: CONSTITUTIONAL: No fevers, chills. PULMONARY: No sob CARDIOVASCULAR: No chest pain/palpitations GASTROINTESTINAL: No nausea/vomiting. GENITOURINARY: No hematuria/dysuria. MUSCULOSKELETAL: No myagias/arthalgias. PSYCHIATRIC: The patient denies depression. NEUROLOGIC: slurred speech Constitutional: alert Psych: no complaints Head: normocephalic ENMT: mucosa pink and moist Neck: jvd (9 cm water), supple Respiratory: diminished breath sounds (at bases/B) Cardiovascular: irregular rhythm Gastrointestinal: non-tender, soft Musculoskeletal: muscle tone (normal) Extremities: edema Neurological: other (No focal deficits) Results Result Diagram: 10/31/16 0550 10/31/16 0550 Results 24 hrs Laboratory Tests Test 11/01/16 06:24 11/01/16 11:25 Prothrombin Time 23.2 H Prothrombin Time Ratio 1.8 INR International Normalized Ratio 2.04 Bedside Glucose 90 Medications Medications Current Medications Dextrose/Sodium Chloride (D5-1/2ns) 1,000 ml @ 75 mls/hr [id number] IV Last administered on 10/30/16t 10:47; Admin Dose 75 MLS/HR; Start 10/30/16 at 05:06 Aspirin (Aspirin) 81 mg DAILY PO Last administered on 11/01/16 09:05; Admin Dose 81 MG; Start 10/30/16 at 09:00 Magnesium Hydroxide (Milk Of Mag) 30 ml DAILY PRN PO CONSTIPATION; Start at 05:30 Cholecalciferol (Vitamin D) 2,000 unit DAILY PO Last administered on 11/01/16 09:06; Admin Dose 2,000 UNIT; Start 10/30/16 at 09:00 Donepezil HCl (Aricept) 5 mg DAILY PO Last administered on 11/01/16 09:06; Admin Dose 5 MG; Start 10/30/16 at 09:00 Multivitamins Therapeutic (Theragran) 1 tab DAILY PO Last administered on 09:05; Admin Dose 1 TAB; Start 10/30/16 at 09:00 Warfarin Sodium (Coumadin) 2.5 mg MoWeSa@17 PO Last administered on 10/31/16 17:49; Admin Dose 2.5 MG; Start 10/31/16 at 17:00 Warfarin Sodium (Coumadin) 1.25 mg SuTuThFr@17 PO Last administered on 18:12; Admin Dose 1.25 MG; Start 10/30/16 at 17:00 Atorvastatin Calcium (Lipitor) 40 mg HS PO Last administered on 10/31/16 20:44 ; Admin Dose 40 MG; Start 10/31/16 at 21:00 Carvedilol (Coreg) 6.25 mg BID PO Last administered on 11/01/16 09:07; Admin Dose 6.25 MG; Start 10/31/16 at 21:00; Status Future Hold Enoxaparin Sodium (Lovenox) 40 mg BID SC Last administered on 11/01/16 09:11; Admin Dose 40 MG; Start 10/31/16 at 21:00; Status Future Hold MERLIN MOONEY Nov 01, 2016 13:10
[2016-11-01] MEDS: WARFARIN 2.5 MG TAB PO SCH (16:38)
[2016-11-01] MEDS: ATORVASTATIN 40 MG TAB PO SCH (21:00)
--- NOTE | 2016-11-01 21:05 | RADRPT ---
Vent Rate: 93 bpm RR Interval: 0 msec MA Interval: 0 msec QRS Duration: 74 msec QT Interval: 372 msec QTC Interval: 462 msec P-R-T [place]: 0 - 5 - 28 degrees Atrial flutter with variable AV block Anterior infarct , age undetermined Abnormal ECG Electronically Signed By: Cirilo Lopez [id number]
--- NOTE | 2016-11-01 22:00 | CONS ---
Date/Time of Note Date/Time of Note DATE: 11/01/16 TIME: 21:55 Consult Date/Type/Reason Admit Date/Time Oct 29, 2016 at 22:32 Type of Consultation: neurology Ordering Provider: NATALIYA VELA Subjective Again episode of slurred speech, facial droop in AM. Now at baseline, CT negative. INR 2 today Objective Vital Signs Date Time Temp Pulse Resp B/P Pulse Ox O2 Delivery O2 Flow Rate FiO2 11/01/16 21:24 77 11/01/16 20:30 97.8 17 139/66 94 10/30/16 12:24 Room Air Intake and Output 10/31/16 10/31/16 11/01/16 15:00 23:00 07:00 Intake Total 700 ml 250 ml Balance 700 ml 250 ml Results/Medications Result Diagram: 10/31/16 0550 10/31/16 0550 Results 24 hrs Laboratory Tests Test 11/01/16 06:24 11/01/16 11:25 Prothrombin Time 23.2 H Prothrombin Time Ratio 1.8 INR International Normalized Ratio 2.04 Bedside Glucose 90 Medications Current Medications Dextrose/Sodium Chloride (D5-1/2ns) 1,000 ml @ 75 mls/hr [id number] IV Last administered on 10/30/16 10:47; Admin Dose 75 MLS/HR; Start 10/30/16 at 05:06 Aspirin (Aspirin) 81 mg DAILY PO Last administered on 11/01/16 09:05; Admin Dose 81 MG; Start 10/30/16 at 09:00 Magnesium Hydroxide (Milk Of Mag) 30 ml DAILY PRN PO CONSTIPATION; Start at 05:30 Cholecalciferol (Vitamin D) 2,000 unit DAILY PO Last administered on 11/01/16 09:06; Admin Dose 2,000 UNIT; Start 10/30/16 at 09:00 Donepezil HCl (Aricept) 5 mg DAILY PO Last administered on 11/01/16 09:06; Admin Dose 5 MG; Start 10/30/16 at 09:00 Multivitamins Therapeutic (Theragran) 1 tab DAILY PO Last administered on 09:05; Admin Dose 1 TAB; Start 10/30/16 at 09:00 Warfarin Sodium (Coumadin) 2.5 mg MoWeSa@17 PO Last administered on 10/31/16 17:49; Admin Dose 2.5 MG; Start 10/31/16 at 17:00 Warfarin Sodium (Coumadin) 1.25 mg SuTuThFr@17 PO Last administered on 16:38; Admin Dose 1.25 MG; Start 10/30/16 at 17:00 Atorvastatin Calcium (Lipitor) 40 mg HS PO Last administered on 10/31/16 20:44 ; Admin Dose 40 MG; Start 10/31/16 at 21:00 Carvedilol (Coreg) 6.25 mg BID PO Last administered on 11/01/16 09:07; Admin Dose 6.25 MG; Start 10/31/16 at 21:00; Status Future Hold Enoxaparin Sodium (Lovenox) 40 mg BID SC Last administered on 11/01/16 09:11; Admin Dose 40 MG; Start 10/31/16 at 21:00; Status Future Hold Assessment/Plan Chief Complaint/Hosp Course PHYSICAL EXAMINATION: GENERAL: Not in acute distress, in the chair HEENT: Normocephalic, atraumatic head. NECK: No carotid bruits. No thyromegaly. LUNGS: Clear to auscultation bilaterally. CARDIAC: Normal cardiac rhythm and sounds. ABDOMEN: Soft. EXTREMITIES: No cyanosis, clubbing, or edema. NEUROLOGIC: She is awake, oriented x2, looks bilaterally, fluent speech. Cranial nerve examination shows intact visual xiao bilaterally to threat. Pupils round, reactive to light from 3 to 2 mm bilaterally. Extraocular movements intact without nystagmus. Symmetrical face. Preserved facial strength and sensation. Corneals OK. Motor strength examination is preserved in all extremities. Normal bulk, tone. Moves all extremities symmetrically to pain. Deep tendon reflexes 1+ upper extremities, absent in lower extremities. Downgoing toes bilaterally. No tremor. Normal coordination. Normal cautious gait IMPRESSION: Small CVA, symptoms of slurred speech lasted >24 h, MRI WNL. A.Flutter, subtherapeutic INR on admission, OK now. Keep euglycemic. Lipitor. OK to cont ASA. Unclear whytransient recurrence of symptoms. OK to keep BP on upper limit of normal, not controlling BP too tight. Dr. Em will follow. If no new problems overnight, probably OK to dc tomorrow D/w pt's relative, who is Marcelo FAULKNER. Problems: FABIO PEPE MD Nov 01, 2016 22:00
[2016-11-02] VITALS (8 sets, daily range): BP systolic 127–139; BP diastolic 60–87; PULSE 71–93; RESP 18–19
[2016-11-02] MEDS: LEVOTHYROXINE 88 MCG TAB PO SCH (06:18)
[2016-11-02 06:54] LABS: INR 2.22; PROTIME 24.9 Sec (12.2-14.2); PT RATIO 1.9
[2016-11-02] MEDS: ASPIRIN 81 MG TAB PO SCH (08:54)
[2016-11-02] MEDS: DONEPEZIL 5 MG TAB PO SCH (08:54)
[2016-11-02] MEDS: MULTIVITAMINS THERAPEUTIC TAB PO SCH (08:54)
[2016-11-02] MEDS: CHOLECALCIFEROL 2,000 UNIT CAP PO SCH (08:54)
--- NOTE | 2016-11-02 10:37 | PDOCDIS ---
Discharge Instructions CONDITION Patient Condition: Stable HOME CARE INSTRUCTIONS: Special Diet: MECHANICAL SOFT FOLLOW UP/APPOINTMENTS Follow-up Plan 1. Follow-up with neurologist in 1 week, patient reported that they have been seeing a neurologist prior. Also provided 's information. 2. Follow-up with lease administration supervisor in 1-2 weeks. 3.Follow up with primary care physician in 1 week-needs INR to be drawn on Saturday. If you don't have one please let someone know, we can give you resources that may help you pick one. You may also call your insurance company to assign one to you. Review your medication list with your nurse before leaving and if you need new prescriptions please let your nurse know. I may have made changes to your home medications or given you new prescriptions, please let your primary doctor know as well. Stay compliant with your medications and report any side effects to your PCP or pharmacist. Return to the ER if you have any concerns and cannot reach your doctors or call your insurance company, they usually have a nurse that can help you. OTHER ORDERS: Other Orders: Call 911 or go to the nearest emergency room if experiencing slowness of speech , loss of consciousness, dizziness, motor weakness, facial droop, chest pain, shortness of breath or other discomfort FREDY RAY NP Nov 02, 2016 10:37
[2016-11-02] MEDS ORDERED: ATOR40TA68 PO (10:39)
[2016-11-02] MEDS ORDERED: ASPI81TA3 PO (10:39)
[2016-11-02] MEDS: DEXTROSE 5%-0.45% NACL 1,000 ML IV SCH (11:31)
--- NOTE | 2016-11-02 12:05 | CONS ---
Date/Time of Note Date/Time of Note DATE: 11/02/16 TIME: 12:04 Consult Date/Type/Reason Admit Date/Time Oct 29, 2016 at 22:32 Initial Consult Date Type of Consultation: neurology Ordering Provider: NATALIYA VELA Subjective feels well, no issues overnight Objective Vital Signs Date Time Temp Pulse Resp B/P Pulse Ox O2 Delivery O2 Flow Rate FiO2 11/02/16 11:27 98.4 89 19 128/60 96 10/30/16 12:24 Room Air Intake and Output 11/01/16 11/01/16 11/02/16 15:00 23:00 07:00 Intake Total 820 ml 900 ml Balance 820 ml 900 ml Exam NEUROLOGIC: She is awake, oriented x2, looks bilaterally, fluent speech. Cranial nerve examination shows intact visual xiao bilaterally to threat. Pupils round, reactive to light from 3 to 2 mm bilaterally. Extraocular movements intact without nystagmus. Symmetrical face. Preserved facial strength and sensation. Corneals OK. Motor strength examination is preserved in all extremities. Normal bulk, tone. Moves all extremities symmetrically to pain. Deep tendon reflexes 1+ upper extremities, absent in lower extremities. Downgoing toes bilaterally. No tremor. Normal coordination. Normal cautious gait Results/Medications Result Diagram: 10/31/16 0550 10/31/16 0550 Results 24 hrs Laboratory Tests Test 11/02/16 06:17 Prothrombin Time 24.9 H Prothrombin Time Ratio 1.9 INR International Normalized Ratio 2.22 Medications Current Medications Dextrose/Sodium Chloride (D5-1/2ns) 1,000 ml @ 75 mls/hr [id number] IV Last administered on 10/30/16 10:47; Admin Dose 75 MLS/HR; Start 10/30/16 at 05:06 Aspirin (Aspirin) 81 mg DAILY PO Last administered on 11/02/16 08:54; Admin Dose 81 MG; Start 10/30/16 at 09:00 Magnesium Hydroxide (Milk Of Mag) 30 ml DAILY PRN PO CONSTIPATION; Start at 05:30 Cholecalciferol (Vitamin D) 2,000 unit DAILY PO Last administered on 11/02/16 08:54; Admin Dose 2,000 UNIT; Start 10/30/16 at 09:00 Donepezil HCl (Aricept) 5 mg DAILY PO Last administered on 11/02/16 08:54; Admin Dose 5 MG; Start 10/30/16 at 09:00 Multivitamins Therapeutic (Theragran) 1 tab DAILY PO Last administered on 08:54; Admin Dose 1 TAB; Start 10/30/16 at 09:00 Warfarin Sodium (Coumadin) 2.5 mg MoWeSa@17 PO Last administered on 10/31/16 17:49; Admin Dose 2.5 MG; Start 10/31/16 at 17:00 Warfarin Sodium (Coumadin) 1.25 mg SuTuThFr@17 PO Last administered on 16:38; Admin Dose 1.25 MG; Start 10/30/16 at 17:00 Atorvastatin Calcium (Lipitor) 40 mg HS PO Last administered on 11/01/16 21:00 ; Admin Dose 40 MG; Start 10/31/16 at 21:00 Carvedilol (Coreg) 6.25 mg BID PO Last administered on 11/01/16 09:07; Admin Dose 6.25 MG; Start 10/31/16 at 21:00; Status Future Hold Enoxaparin Sodium (Lovenox) 40 mg BID SC Last administered on 11/01/16 09:11; Admin Dose 40 MG; Start 10/31/16 at 21:00; Status Future Hold Assessment/Plan Chief Complaint/Hosp Course suspected small CVA with sx of slurred speech >24 hours, MRI wnl, continue aspirin, AC, Lipitor planned for discharge, advised family to obtain cardiac clearance prior to flying neurology follow up Problems: BELKIS WALKER MD Nov 02, 2016 12:05
--- NOTE | 2016-11-02 15:32 | DS ---
Date/Time of Note Date/Time of Note DATE: 11/02/16 TIME: 15:27 Discharge Summary Admission/Discharge Info Admit Date/Time Oct 29, 2016 at 22:32 Discharge Date/Time Nov 02, 2016 at 11:54 Discharge Diagnosis 1. Small CVA. Symptoms resolved 2. Atrial fibrillation , on anticoagulation 3. 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 4. Hypothyroidism 4. Dementia 5. Hypernatremia, likely dehydration. Resolved Patient Condition: Stable Consults Dr. Lopez, cardiology Dr. Ceja,neurology Procedures 10/29/2016. Chest x-ray. Mild pulmonary vascular congestion. 10/29/2016. CT brain without contrast. No evidence of acute intracranial pathology, no definite CT evidence for acute intracranial ischemia. 10/30/2016. Ultrasound carotid. No hemodynamically significant stenosis. 10/30/2016. Brain MRI without contrast. No acute intracranial hemorrhage, infarction or masses. Mild chronic small vessel ischemic changes. 10/30/2016. 2D echocardiogram. Mild global left ventricular systolic dysfunction with ejection fraction 45-50%. 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 Hospital Course This is a 86-year-old female with a past medical history of atrial fibrillation , on anticoagulation, hypothyroidism, congestive heart failure, hypertension, former smoker, who presented to the emergency room with complaints of left facial droop associated with slurry speech lasted less than 1 minute. Patient also had similar short lasting episode in the past. Patient denied any chest pain, shortness of breath, loss of consciousness, dizziness, numbness, motor weakness, or other constitutional symptoms. In the emergency room, patient was alert oriented 4. Initial vital signs with blood pressure 170/94 182/84, otherwise stable. BMP with creatinine 1.07. Patient also had a subtherapeutic INR 1.85. Otherwise all labs stable. A CT brain was negative for any acute stroke. Patient was treated with aspirin in the emergency room and a clinical decision was made to admit for further evaluation. A neurology consultation was called. Patient also had undergone MRI which did not reveal any acute stroke. Patient was carotid ultrasound was negative for any significant stenosis. Patient was continued on aspirin, high-dose statin. We allowed permissive blood pressure for the first 24 hours. Patient was continued on anticoagulation with Coumadin. Due to subtherapeutic INR, patient also received Lovenox and was seen by cardiology. She was also continued on home medication for underlying conditions.Echocardiogram with preserved ejection fraction 45-50%. Patient INR back to therapeutic level after bridging with Lovenox. Patient also refused any acute rehab evaluation. She was seen by physical therapy, speech therapy and. Patient was able to tolerate diet and activities very well. At this time, patient is cleared for discharge from neurology and cardiology standpoint. Patient's family was instructed to have her follow-up with Coumadin clinic for next INR draw on Saturday. Patient and family verbalized discharge instructions. Disposition: Patient will be discharged home today. She was instructed to follow-up with primary care physician, ruffling hemmer automatic and urologist as outpatient. Condition at time of discharge is stable. Approximately 50 minutes was spent in coordinating the discharge on this patient. Case discussed with [place] [facility] Active Scripts Aspirin (Aspirin) 81 Mg Chew, 81 MG PO DAILY, #30 TAB Prov:FREDY RAY V. ENGINEERING SYSTEMS ANALYST 11/02/16 Atorvastatin* (Atorvastatin*) 40 Mg Tablet, 40 MG PO HS, #30 TAB Prov:FREDY RAY V. ENGINEERING SYSTEMS ANALYST 11/02/16 Reported Medications Cholecalciferol (Vitamin D3) (VITAMIN D-3) 2,000 Unit Capsule, 2000 UNIT PO DAILY, CAP 10/29/16 Multivitamins* (Theragran*) 1 Tab Tab, 1 TAB PO DAILY, TAB 10/29/16 Carvedilol* (Carvedilol*) 3.125 Mg Tablet, 3.125 MG PO BID, #60 TAB 10/29/16 Donepezil* (Aricept*) 5 Mg Tablet, 5 MG PO DAILY, TAB 10/29/16 Levothyroxine Sodium* (Levothyroxine Sodium*) 88 Mcg Tablet, 88 MCG PO BEFORE BREAKFAST, #30 TAB 10/29/16 Warfarin Sodium* (Coumadin*) 2.5 Mg Tablet, 1.25 MG PO DAILY, TAB SUN.,TUES.,THURS.,FRI. 10/29/16 Warfarin Sodium* (Coumadin*) 2.5 Mg Tablet, 2.5 MG PO DAILY, TAB MON.,WEDN.,SAT 10/29/16 Follow-up Plan 1.Follow up with primary care physician in 1 week If you don't have one please let someone know, we can give you resources that may help you pick one. You may also call your insurance company to assign one to you. Review your medication list with your nurse before leaving and if you need new prescriptions please let your nurse know. I may have made changes to your home medications or given you new prescriptions, please let your primary doctor know as well. Stay compliant with your medications and report any side effects to your PCP or pharmacist. Return to the ER if you have any concerns and cannot reach your doctors or call your insurance company, they usually have a nurse that can help you. 2. Follow-up with ruffling hemmer automatic and neurologist in 1 week. 3. Follow-up with Coumadin clinic and have INR drawn on Saturday. Primary Care Provider [facility] Pending Labs Laboratory Tests Test 11/02/16 06:17 Prothrombin Time 24.9Sec (12.2-14.2) Prothrombin Time Ratio 1.9 INR International Normalized Ratio 2.22 FREDY RAY NP Nov 02, 2016 15:32
== END 2016-11-02 11:54 | disposition home or self-care (01) | DRG 69 ==
LOC: E/R 19:22 → MS3 22:32 → TEL 10-30 17:29
PROVIDERS: ADMIT Internal Medicine; ATTEND Internal Medicine
DX: G45.9 Transient cerebral ischemic attack, unspecified (principal); N17.9 Acute kidney failure, unspecified; E87.0 Hyperosmolality and hypernatremia; I48.2 Chronic atrial fibrillation; E03.9 Hypothyroidism, unspecified; F03.90 Unspecified dementia, unspecified severity, without behavioral disturbance, psychotic disturbance, mood disturbance, and anxiety; R29.810 Facial weakness; R47.81 Slurred speech; Z96.653 Presence of artificial knee joint, bilateral; Z87.891 Personal history of nicotine dependence; Z79.01 Long term (current) use of anticoagulants; Z79.82 Long term (current) use of aspirin
CPT/HCPCS: 36415; 70450; 70551; 71010; 80048; 80053; 80061; 82962; 83036; 83735; 84100; 84443; 84484; 85025; 85610; 85730; 92610; 93005; 93306; 93880; 96360; 97162; J1940; J1650; J7040; J7042

== ENCOUNTER 2017-06-06 12:02 | Emergency (ER) | END 2017-06-06 15:17 | disposition home or self-care (01) ==

== ENCOUNTER 2017-06-14 14:22 | Emergency (ER) | END 2017-06-14 19:32 | disposition home or self-care (01) ==

== ENCOUNTER 2017-06-17 12:33 | Inpatient (IN) | END 2017-06-20 14:18 | disposition home or self-care (01) | DRG 202 ==

== ENCOUNTER 2017-07-22 07:57 | Emergency (ER) | END 2017-07-22 10:39 | disposition home or self-care (01) ==

== ENCOUNTER 2017-08-10 09:23 | Emergency (ER) | END 2017-08-10 11:52 | disposition home or self-care (01) ==